=== PATIENT | female | born 1975 | race Caucasian/White ===

== ENCOUNTER 2017-10-24 08:58 | Emergency (ER) | payer BC ==
[2017-10-24 09:13] VITALS: BP 98/45
--- NOTE | 2017-10-24 09:28 | UC ---
Throat Pain/Nasal Phi HPI - History of Current Complaint Chief Complaint: UCUpperExtremity Stated Complaint: FINGER INJURY Time Seen by Provider: 10/24/17 09:17 Hx Last Menstrual Period: 10/10/17 - Allergies/Home Medications Allergies/Adverse Reactions: Allergies Allergy/AdvReac Type Severity Reaction Status Date / Time No Known Allergies Allergy Verified 10/24/17 09:13 Home Medications: Home Medications Copper (Iud) [Paragard IUD] 1 applic VAGINAL ONCE 10/24/17 [History Confirmed ] PMH/Surg Hx/FS Hx/Imm Hx - Surgical History Surgical History: Yes Surgery Procedure, Year, and Place: knee surgery- Rt - Family History Known Family History: Positive: Cardiac Disease, Hypertension - Social History Alcohol Use: Occasionally Substance Use Type: None Smoking Status (MU): Never Smoked Tobacco Have You Smoked in the Last Year: No - Immunization History Most Recent Influenza Vaccination: Not UTD Physical Exam Vital Signs: Initial Vital Signs Temp 98.9 F 10/24/17 09:08 Pulse 66 10/24/17 09:08 Resp 16 10/24/17 09:08 BP 98/45 10/24/17 09:08 Pulse Ox 100 10/24/17 09:08 Discharge - Discharge Plan Referrals: Nahomi Olson MD [Primary Care Provider] -
--- NOTE | 2017-10-24 09:40 | RAD ---
INDICATION: Left second finger injury. TECHNIQUE: 3 views of the left second finger were obtained. FINDINGS: There is focal soft tissue swelling centered at the proximal interphalangeal joint. No fracture is seen. Joint spaces appear maintained. IMPRESSION: SOFT TISSUE SWELLING, NO FRACTURE IS SEEN.
--- NOTE | 2017-10-24 09:42 | UC ---
Hand/Wrist HPI - HPI Summary HPI Summary: jammed left index finger 4 weeks ago has continued pain swelling and decreased ROM pip - History Of Current Complaint Chief Complaint: UCUpperExtremity Stated Complaint: FINGER INJURY Time Seen by Provider: 10/24/17 09:17 Hx Obtained From: Patient Hx Last Menstrual Period: 10/10/17 ?: No Mechanism Of Injury: jammed finger Onset/Duration: Sudden Onset, Lasting Weeks - 4, Still Present Severity Initially: Moderate Severity Currently: Mild Character Of Pain: Aching, Throbbing, Stiffness Aggravating Factor(s): Movement Alleviating Factor(s): Nothing Associated Signs And Symptoms: Positive: Redness Related History: Dominant Hand Right - Allergies/Home Medications Allergies/Adverse Reactions: Allergies Allergy/AdvReac Type Severity Reaction Status Date / Time No Known Allergies Allergy Verified 10/24/17 09:13 Home Medications: Home Medications Copper (Iud) [Paragard IUD] 1 applic VAGINAL ONCE 10/24/17 [History Confirmed ] PMH/Surg Hx/FS Hx/Imm Hx Previously Healthy: Yes - Surgical History Surgical History: Yes Surgery Procedure, Year, and Place: knee surgery- Rt - Family History Known Family History: Positive: Cardiac Disease, Hypertension - Social History Occupation: Employed Full-time Lives: With Family Alcohol Use: Occasionally Substance Use Type: None Smoking Status (MU): Never Smoked Tobacco Have You Smoked in the Last Year: No - Immunization History Most Recent Influenza Vaccination: Not UTD Review of Systems Constitutional: Negative Skin: Negative Eyes: Negative ENT: Negative Respiratory: Negative Cardiovascular: Negative Gastrointestinal: Negative Genitourinary: Negative Motor: Negative Neurovascular: Negative Musculoskeletal: Arthralgia - left index pip Neurological: Negative Psychological: Negative Is Patient Immunocompromised?: No All Other Systems Reviewed And Are Negative: Yes Physical Exam Triage Information Reviewed: Yes Appearance: Well-Appearing, No Pain Distress, Well-Nourished Vital Signs: Initial Vital Signs Temp 98.9 F 10/24/17 09:08 Pulse 66 10/24/17 09:08 Resp 16 10/24/17 09:08 BP 98/45 10/24/17 09:08 Pulse Ox 100 10/24/17 09:08 Vital Signs Reviewed: Yes Eye Exam: Normal Eyes: Positive: Conjunctiva Inflamed ENT Exam: Normal ENT: Positive: Normal ENT inspection, Hearing grossly normal, Pharynx normal. Negative: Nasal congestion, Trismus, Muffled voice, Hoarse voice Dental Exam: Normal Neck exam: Normal Neck: Positive: Supple, Nontender Respiratory Exam: Normal Respiratory: Positive: Chest non-tender, No respiratory distress, No accessory muscle use Cardiovascular Exam: Normal Cardiovascular: Positive: RRR, Pulses Normal, Brisk Capillary Refill Musculoskeletal Exam: Normal Musculoskeletal: Positive: Strength Intact, ROM Limited @ - left index pip joint , Edema @ - left pip index finfer Neurological Exam: Normal Neurological: Positive: Alert, Muscle Tone Normal Psychological Exam: Normal Skin Exam: Normal Diagnostics - Radiology No standard instances Xray Interpretation: No Acute Changes Radiology Interpretation Completed By: Radiologist Hand/Wrist Course/Dx - Course Course Of Treatment: Splint, ibuprofen, follow with ortho - Differential Dx/Diagnosis Provider Diagnoses: Left finger sprain Discharge - Discharge Plan Condition: Stable Disposition: HOME Patient Education Materials: Finger Sprain (ED) Referrals: Gabriel Weaver MD [Medical Doctor] - 5 Days
== END 2017-10-24 09:57 | disposition home or self-care (01) ==
LOC: UCEAST 08:58
DX: S63.611A Unspecified sprain of left index finger, initial encounter (principal); W23.0XXA Caught, crushed, jammed, or pinched between moving objects, initial encounter; Y93.9 Activity, unspecified; Y92.9 Unspecified place or not applicable; Y99.9 Unspecified external cause status
CPT/HCPCS: 73140; 99211; G0463

== ENCOUNTER 2018-10-05 00:40 | Observation (INO) | payer BC ==
[2018-10-05] MEDS ORDERED: NS 0.9% 1000 ML* 1,000 ML IV ONE (01:03)
[2018-10-05] MEDS ORDERED: Morphine VIAL* 10 MG/ML 1 ML VIAL IV ONE (01:03)
[2018-10-05] MEDS ORDERED: Morphine VIAL* 4 MG/ML VIAL (1 ml vial) IV ONE ×3 (01:07→02:06)
[2018-10-05] MEDS: Ondansetron INJ* 2 MG/ML VIAL IV ONE ×2 (01:16→03:17)
[2018-10-05 01:28] LABS: ABS Basophils 0.1 10^3/ul (0-0.2); ABS Eosinophils 0.3 10^3/ul (0-0.6); ABS Lymphocytes 2.4 10^3/ul (1.0-4.8); ABS Monocytes 0.4 10^3/ul (0-0.8); ABS Neutrophils 2.2 10^3/ul (1.5-7.7); ABS Nucleated RBC 0 10^3/ul; Eosinophil % 5.5 % (0-6); Hematocrit 41 % (35-47); Lymphocyte % 44.6 % (25-47); Mean Corpuscular HGB Conc 34 g/dl (31-36); Mean Corpuscular Hemoglobin 30 pg (27-31); Mean Corpuscular Volume 89 fL (80-97); Mean Platelet Volume 7.8 fL (7.4-10.4); Nucleated Red Blood Cells % 0.1; Platelet Count 248 10^3/ul (150-450); Red Blood Count 4.63 10^6/ul (4.00-5.40); Red Cell Distribution Width 13 % (10.5-15); White Blood Count 5.3 10^3/ul (3.5-10.8)
[2018-10-05 01:44] LABS: EGFR Non-African American 86.5 (>60)
[2018-10-05] MEDS ORDERED: Iohexol 300* (CONTRAST) 10 ML SDV IV ONE (01:48)
--- NOTE | 2018-10-05 02:14 | ED ---
Abdominal Pain/Female - HPI Summary HPI Summary: Patient complains of sudden onset left lower quadrant pain starting 11:30 PM tonight. Patient states pain woke her up out of sleep, described as sharp, constant, associated with nausea and bright red blood in stool 1. History of ovarian cysts bilaterally. Denies prior history of bleeding with stools, fever , cough, sore throat, CP, SOB, change in urine, vaginal symptoms, history of hemorrhoids. Medical history is none. Abdominal surgical history is none. - History of Current Complaint Chief Complaint: EDAbdPain Stated Complaint: ABD PAIN Time Seen by Provider: 10/05/18 00:51 Hx Obtained From: Patient Hx Last Menstrual Period: 10/10/17 Onset/Duration: Sudden Onset Timing: Constant Severity Initially: Severe Severity Currently: Severe Pain Intensity: 9 Pain Scale Used: 0-10 Numeric Location: Discrete At: LLQ Radiates: No Character: Sharp, Cramping Aggravating Factor(s): Nothing Alleviating Factor(s): Nothing Associated Signs and Symptoms: Positive: Blood in Stool, Nausea Allergies/Adverse Reactions: Allergies Allergy/AdvReac Type Severity Reaction Status Date / Time No Known Allergies Allergy Verified 10/05/18 00:46 PMH/Surg Hx/FS Hx/Imm Hx Endocrine/Hematology History: Denies: Hx Diabetes, Hx Thyroid Disease Cardiovascular History: Denies: Hx Congestive Heart Failure, Hx Deep Vein Thrombosis, Hx Hypertension , Hx Myocardial Infarction, Hx Pacemaker/ICD Respiratory History: Denies: Hx Asthma, Hx Chronic Obstructive Pulmonary Disease (COPD), Hx Lung Cancer, Hx Pneumonia, Hx Pulmonary Embolism GI History: Denies: Hx Gall Bladder Disease, Hx Gastrointestinal Bleed, Hx Ulcer, Hx Urosepsis History: Denies: Hx Kidney Stones, Hx Renal Disease Sensory History: Denies: Hx Hearing Aid Neurological History: Denies: Hx Dementia, Hx Migraine, Hx Seizures, Hx Transient Ischemic Attacks (TIA) Psychiatric History: Denies: Hx Anxiety, Hx Depression, Hx Panic Disorder, Hx Schizophrenia, Hx Bipolar Disorder - Surgical History Surgery Procedure, Year, and Place: knee surgery- Rt Infectious Disease History: No Infectious Disease History: Denies: Hx Clostridium Difficile, Hx Hepatitis, Hx Human Immunodeficiency Virus (HIV), Hx of Known/Suspected MRSA, Hx Shingles, Hx Tuberculosis, Hx Known/ Suspected VRE, Hx Known/Suspected VRSA, History Other Infectious Disease, Traveled Outside the [place] in Last 30 Days - Family History Known Family History: Positive: Cardiac Disease, Hypertension - Social History Alcohol Use: Occasionally Substance Use Type: Reports: None Smoking Status (MU): Never Smoked Tobacco Have You Smoked in the Last Year: No Review of Systems Constitutional: Negative Eyes: Negative ENT: Negative Cardiovascular: Negative Respiratory: Negative Positive: Abdominal Pain, Nausea Genitourinary: Negative Musculoskeletal: Negative Skin: Negative Neurological: Negative Psychological: Normal All Other Systems Reviewed And Are Negative: Yes Physical Exam Triage Information Reviewed: Yes Vital Signs On Initial Exam: Initial Vitals Temp Pulse Resp BP Pulse Ox 97.5 F 84 20 132/99 100 10/05/18 00:40 10/05/18 00:40 10/05/18 00:40 10/05/18 00:40 10/05/18 00:40 Vital Signs Reviewed: Yes Appearance: Positive: Well-Appearing Skin: Positive: Warm Head/Face: Positive: Normal Head/Face Inspection Eyes: Positive: Normal Neck: Positive: Supple Respiratory/Lung Sounds: Positive: Clear to Auscultation Cardiovascular: Positive: Normal Abdomen Description: Positive: Other: Musculoskeletal: Positive: Normal Neurological: Positive: Normal Psychiatric: Positive: Normal AVPU Assessment: Alert - Ceci Coma Scale Best Eye Response: 4 - Spontaneous Best Motor Response: 6 - Obeys Commands Best Verbal Response: 5 - Oriented Coma Scale Total: 15 Diagnostics - Vital Signs Vital Signs Temp Pulse Resp BP Pulse Ox 10/05/18 02:07 16 10/05/18 01:17 17 10/05/18 00:40 97.5 F 84 20 132/99 100 - Laboratory Lab Results: Lab Results 10/05/18 10/05/18 Range/Units 01:07 01:07 WBC 5.3 (3.5-10.8) 10^3/ul RBC 4.63 (4.00-5.40) 10^6/ul Hgb 14.0 (12.0-16.0) g/dl Hct 41 (35-47) % MCV 89 (80-97) fL MCH 30 (27-31) pg MCHC 34 (31-36) g/dl RDW 13 (10.5-15) % Plt Count 248 (150-450) 10^3/ul MPV 7.8 (7.4-10.4) fL Neut % (Auto) 40.8 (38-83) % Lymph % (Auto) 44.6 (25-47) % [place] % (Auto) 7.9 H (0-7) % Eos % (Auto) 5.5 (0-6) % Baso % (Auto) 1.2 (0-2) % Absolute Neuts (auto) 2.2 (1.5-7.7) 10^3/ul Absolute Lymphs (auto) 2.4 (1.0-4.8) 10^3/ul Absolute Monos (auto) 0.4 (0-0.8) 10^3/ul Absolute Eos (auto) 0.3 (0-0.6) 10^3/ul Absolute Basos (auto) 0.1 (0-0.2) 10^3/ul Absolute Nucleated RBC 0 10^3/ul Nucleated RBC % 0.1 Sodium 139 (135-145) mmol/L Potassium 3.5 (3.5-5.0) mmol/L Chloride 106 (101-111) mmol/L Carbon Dioxide 24 (22-32) mmol/L Anion Gap 9 (2-11) mmol/L BUN 15 (6-24) mg/dL Creatinine 0.74 (0.51-0.95) mg/dL Est GFR ( Amer) 104.7 (>60) Est GFR (Non-Af Amer) 86.5 (>60) BUN/Creatinine Ratio 20.3 H (8-20) Glucose 173 H (70-100) mg/dL Calcium 9.3 (8.6-10.3) mg/dL Total Bilirubin 0.40 (0.2-1.0) mg/dL AST 49 H (13-39) U/L ALT 54 H (7-52) U/L Alkaline Phosphatase 53 (34-104) U/L C-Reactive Protein < 1.00 (<8.01) mg/L Total Protein 6.9 (6.4-8.9) g/dL Albumin 4.2 (3.2-5.2) g/dL Globulin 2.7 (2-4) g/dL Albumin/Globulin Ratio 1.6 (1-3) Lipase 58 (11.0-82.0) U/L Beta HCG, Quant < 0.60 mIU/mL Result Diagrams: 10/05/18 01:07 10/05/18 01:07 Lab Statement: Any lab studies that have been ordered have been reviewed, and results considered in the medical decision making process. Abdominal Pain Fem Course/Dx - Course Course Of Treatment: Patient complains of sudden onset left lower quadrant pain starting 11:30 PM tonight. Patient states pain woke her up out of sleep, described as sharp, constant, associated with nausea and bright red blood in stool 1. History of ovarian cysts bilaterally. Denies prior history of bleeding with stools, fever, cough, sore throat, CP, SOB, change in urine, vaginal symptoms, history of hemorrhoids. Medical history is none. Abdominal surgical history is none. Physical exam: Left lower quadrant tenderness. Vital signs within normal limits. Labs unremarkable. Pain not controlled after 8 mg of morphine. - Diagnoses Differential Diagnosis: Positive: Appendicitis, Diverticulitis, Ectopic , Ovarian Cyst, Urinary Tract Infection Provider Diagnoses: Ovarian cyst Discharge - Sign-Out/Discharge Documenting (check all that apply): Sign-Out Patient Signing out patient TO: Tiffany Hernandez - Discharge Plan Condition: Stable Disposition: ADMITTED TO [facility] - Billing Disposition and Condition Condition: STABLE Disposition: Admitted to [facility] - Attestation Statements Scribe Documentation Reviewed: Yes
[2018-10-05 02:24] LABS: Urine Appearance Turbid; Urine Blood Negative (Negative); Urine Color Yellow; Urine Ketones Trace (Negative); Urine Protein Negative (Negative); Urine Red Blood Cell Absent (Absent); Urine Specific Gravity 1.021 (1.010-1.030); Urine Urobilinogen Negative (Negative); Urine White Blood Cell 3+(>20/hpf) (Absent)
[2018-10-05] MEDS ORDERED: HYDROmorphone INJ* 1 MG/ML CARPUJECT SYRINGE IV ONE (02:44)
[2018-10-05] MEDS ORDERED: HYDROmorphone INJ* 0.5 MG/0.5 ML SYRINGE ONE (03:10)
[2018-10-05] MEDS ORDERED: Ondansetron INJ* 2 MG/ML VIAL ONE (03:11)
[2018-10-05] MEDS ORDERED: HYDROmorphone INJ* 0.5 MG/0.5 ML SYRINGE IV SLOW PU ONE (03:16)
[2018-10-05] MEDS ORDERED: fentaNYL* 50 MCG/ML 2 ML VIAL (100 MCG VIAL) IV SLOW PU ONE (03:24)
[2018-10-05] MEDS ORDERED: Ketorolac INJ* 30 MG/ML 1 ML VIAL IV PUSH ONE (03:24)
--- NOTE | 2018-10-05 04:01 | ED ---
Progress - Progress Note Progress Note: This patient was signed out from [facility] IV[facility] awaiting US The patient is still currently having LLQ pain. CT showed a cyst and an US will be done to r/o torsion. Medication has been ordered for pain. Transvaginal US reveals, There are 2 large cysts noted within the left ovary the largest measuring 4.2 x 4.2 x 2.3 CM. Recommend followup imaging. There is normal arterial and venous flow noted within the bilateral ovaries with no evidence of ovarian torsion. Dr. Hernandez has reviewed this report This patient will be signed out to Dr. Rojas awaiting OB consult Course/Dx - Course Course Of Treatment: This patient was signed out from Elpidio IV[facility] awaiting US. The patient is still currently having LLQ pain. CT showed a cyst and an US will be done to r/o torsion. Medication has been ordered for pain. Transvaginal US reveals, There are 2 large cysts noted within the left ovary the largest. measuring 4.2 x 4.2 x 2.3 CM. Recommend followup imaging. There is normal. arterial and venous flow noted within the bilateral ovaries with no evidence of. ovarian torsion. Dr. Hernandez has reviewed this report. This patient will be signed out to Dr. Rojas awaiting OB consult - Diagnoses Provider Diagnoses: Ovarian cyst - Provider Notifications Discussed Care Of Patient With: Rowena Osorio Time Discussed With Above Provider: 06:23 Instructed by Provider To: Other - She has agreed to come see the patient. Discharge - Sign-Out/Discharge Documenting (check all that apply): Patient Departure, Sign-Out Patient, Receiving Sign-Out Signing out patient TO: Behzad Rojas Receiving patient FROM: Elpidio Worrell - Discharge Plan Condition: Stable Referrals: Nahomi Olson MD [Primary Care Provider] - - Attestation Statements Document Initiated by Scribe: Yes Documenting Scribe: Mario Enamorado Provider For Whom Debbyibhortensia is Documenting (Include Credential): Tiffany Hernandez MD Scribe Attestation: Mario Leonard, scribed for Tiffany Hernandez MD on 10/05/18 at 0642.
[2018-10-05] MEDS ORDERED: HYDROmorphone INJ* 0.5 MG/0.5 ML SYRINGE IV PRN (07:18)
[2018-10-05] MEDS ORDERED: Ketorolac INJ* 30 MG/ML 1 ML VIAL IV PRN (07:18)
[2018-10-05] MEDS ORDERED: HYDROmorphone INJ* 1 MG/ML CARPUJECT SYRINGE IV SLOW PU ONE (07:23)
--- NOTE | 2018-10-05 07:27 | ED ---
Progress - Progress Note Progress Note: Receiving sign out from Dr. Hernandez, pending consult from Dr. Osorio. Dr. Osorio accepts pt for admission. Final dx is ovarian cyst. Pt is agreeable with this plan. Course/Dx - Diagnoses Provider Diagnoses: Ovarian cyst - Provider Notifications Discussed Care Of Patient With: Rowena Osorio Time Discussed With Above Provider: 07:25 Instructed by Provider To: Admit As Inpatient - Dr. Osorio accepts pt for admission. Discharge - Sign-Out/Discharge Documenting (check all that apply): Patient Departure - Admit, Receiving Sign- Out Receiving patient FROM: Tiffany Hernandez - Discharge Plan Condition: Stable Disposition: ADMITTED TO [facility] Referrals: Nahomi Olson MD [Primary Care Provider] - - Billing Disposition and Condition Condition: STABLE Disposition: Admitted to [facility] - Attestation Statements Document Initiated by Scribe: Yes Documenting Scribe: Barbara Montoya Provider For Whom Scribe is Documenting (Include Credential): Behzad Rojas MD Scribe Attestation: Barbara Leonard, scribed for Behzad Rojas MD on 10/05/18 at 0729. Scribe Documentation Reviewed: Yes Provider Attestation: The documentation as recorded by the Barbara rodriguez accurately reflects the service I personally performed and the decisions made by Behzad yepez MD
--- NOTE | 2018-10-05 07:45 | HP ---
H&P (Free Text) History and Physical: CC: LLQ pain HPI: pt awoke from sleep with severe LLQ pain at about 11:30pm yesterday so she came to the ED. She has never experienced pain like this before. She does have a h/o ruptured ovarian cysts but says that pain has been more mild. She is about 3wks from her LMP - she has regular cycles. Has a paragard IUD. She had 2 unmedicated NVDs and says this pain is worse than what she experienced with those. She has had some nausea associated with the pain. Denies abnormal BMs or any pain prior to this. While in the ED she was evaluated and found to have a slightly enlarged left ovary with 2 cysts, the largest about [id number]. Bloodflow is noted to both ovaries. No current meds NKDA PMH: neg PSH: 3 knee surgeries, egg retrieval (donated to her cousin) Writing Tutor hx: , NVDs. Sees Dr. Chavez, had a sono done at his office in the ? spring? to evaluate for ovarian cysts and it was normal. Soc Hx: alcohol use: 1-2 drinks/week. No tobacco or illicit drug use. Lives with family, works at at [employer] Vital Signs Temp Pulse Resp BP Pulse Ox 97.5 F 74 15 126/74 100 10/05/18 00:40 10/05/18 06:28 18 06:28 10/05/18 06:28 10/05/18 06:28 CT scan: IUD is noted within the uterus. There are prominent left ovarian vein and left venous structures possible compatible with pelvic congestion syndrome. Pelvic free fluid is noted. Prominent complex cystic structure noted posterior to the uterus measuring 5.3x4.6cm. Sono: The left ovary is 5.9x4.6x6.6 with 2 simple cysts the largest measuring 4.2x4.2x2.3cm, b/l AV flow noted to both ovaries with no e/o torsion. Exam Gen: mild-mod painful distress Abd: soft, ND, mod tenderness in LLQ. Mild tenderness in LLQ with palpation in RLQ. No tenderness elsewhere. No rebound or guarding. Pt had received fentanyl not long before this exam. Ext: no edema, calf tenderness A: 42yo with LLQ pain and slightly enlarged left ovary with simple ovarian cysts. No current e/o torsion. Possible ruptured cyst? P: Admit for observation and pain management. Will consider dx lap if no improvement in pain over the course of the day. Will keep NPO.
[2018-10-05] MEDS: HYDROmorphone INJ1* 1 MG/ML SYRINGE IV PRN ×2 (09:02→11:20)
[2018-10-05] MEDS ORDERED: Ondansetron INJ* 2 MG/ML VIAL IV PRN (09:28)
--- NOTE | 2018-10-06 09:11 | PN ---
Progress Note - Progress Note Date of Service: 10/05/18 Note: Late note, pt seen in preop with appearance of improved pain control. discussed option of proceeding with diagnostic laparoscopy or waiting . Do not feel risk of torsion is especially high given her response to pain medication. Pt and I in agreement regarding continued observation sans surgery at this time. Brett Kaplan MD
[2018-10-06 12:08] VITALS: BP 108/57
--- NOTE | 2018-10-06 13:52 | PN ---
Progress Note - Progress Note Date of Service: 10/06/18 SOAP: Subjective: [Patient s a 42 y/o admitted through the emergency department for LLQ abdominal pain and enlarged left Ovarian simple cyst. She was managed conservatively with observation and pain meds after a pelvic ultrasound demonstrated no findings c/w a torsion. Patient states she no longer feels any pain, denies fever, chills, nausea or vomiting. She is tolerating a regular diet and is not needing any pain medications and desires /dc home.] Objective: [ Vital Signs 10/05/18 10/05/18 10/05/18 19:35 20:00 23:55 Temperature 98.3 F 98.3 F Pulse Rate 72 78 Respiratory 20 16 16 Rate Blood Pressure 92/45 107/57 (mmHg) O2 Sat by Pulse 98 98 Oximetry 10/06/18 10/06/18 10/06/18 03:37 07:15 07:19 Temperature 98.4 F 97.9 F Pulse Rate 77 61 Respiratory 16 16 16 Rate Blood Pressure 95/59 101/65 (mmHg) O2 Sat by Pulse 99 98 Oximetry 10/06/18 11:25 Temperature 98.4 F Pulse Rate 73 Respiratory 16 Rate Blood Pressure 108/57 (mmHg) O2 Sat by Pulse 99 Oximetry Laboratory Tests 10/05/18 10/05/18 10/05/18 01:07 01:07 02:08 WBC 5.3 RBC 4.63 Hgb 14.0 Hct 41 MCV 89 MCH 30 MCHC 34 RDW 13 Plt Count 248 MPV 7.8 Neut % (Auto) 40.8 Lymph % (Auto) 44.6 [place] % (Auto) 7.9 H Eos % (Auto) 5.5 Baso % (Auto) 1.2 Absolute Neuts (auto) 2.2 Absolute Lymphs (auto) 2.4 Absolute Monos (auto) 0.4 Absolute Eos (auto) 0.3 Absolute Basos (auto) 0.1 Absolute Nucleated RBC 0 Nucleated RBC % 0.1 Sodium 139 Potassium 3.5 Chloride 106 Carbon Dioxide 24 Anion Gap 9 BUN 15 Creatinine 0.74 Est GFR ( Amer) 104.7 Est GFR (Non-Af Amer) 86.5 BUN/Creatinine Ratio 20.3 H Glucose 173 H Calcium 9.3 Total Bilirubin 0.40 AST 49 H ALT 54 H Alkaline Phosphatase 53 C-Reactive Protein < 1.00 Total Protein 6.9 Albumin 4.2 Globulin 2.7 Albumin/Globulin Ratio 1.6 Lipase 58 Beta HCG, Quant < 0.60 Urine Color Yellow Urine Appearance Turbid Urine pH 7.0 Ur Specific [place] 1.021 Urine Protein Negative Urine Ketones Trace A Urine Blood Negative Urine Nitrate Negative Urine Bilirubin Negative Urine Urobilinogen Negative Ur Leukocyte Esterase 1+ A Urine WBC (Auto) 3+(>20/hpf) A Urine RBC (Auto) Absent Ur Squamous Epith Cells Present A Urine Bacteria Absent Urine Glucose Negative Lungs CTA b/l, no CVA tenderness b/l CV RRR Abdomen is soft, not distended, not tender, no rebound or guarding and normal bowel sounds.] Assessment: [Patient is stable with no pain] Plan: [Discharge home, patient instructed to call my office if her s/sx return, otherwise she has been scheduled for a /fu appt and ultrasound at my office on 10/21/18 at 1pm.]
== END 2018-10-06 14:30 | disposition home or self-care (01) ==
LOC: ED 00:40 → SSU 07:25
PROVIDERS: ADMIT Obstetrics & Gynecology; ATTEND Obstetrics & Gynecology
DX: R10.32 Left lower quadrant pain (principal); N83.202 Unspecified ovarian cyst, left side; R11.0 Nausea; K92.1 Melena
CPT/HCPCS: 36415; 74177; 76830; 80053; 81003; 81015; 82270; 83690; 84702; 85025; 86140; 87086; 96374; 96375; 96376; 99285; G0378; J1170; J1885; J2270; J2405; J3010